=== PATIENT | female | born 1985 | race African-American/Black ===

== ENCOUNTER 2016-12-21 14:40 | Emergency (ER) | payer OTHER ==
[~2016-12-21] VITALS: Ht 157.5 cm; Wt 100.0 kg
[2016-12-21 15:32] VITALS: BP 141/81
== END 2016-12-21 15:43 | disposition home or self-care (01) | DRG 103 ==
LOC: ED 14:40
DX: R51 Headache (principal); F17.210 Nicotine dependence, cigarettes, uncomplicated; O99.332 Smoking (tobacco) complicating pregnancy, second trimester; Z3A.16 16 weeks gestation of pregnancy

== ENCOUNTER 2019-03-04 12:03 | Observation (INO) | payer SELFPAY ==
[~2019-03-04] VITALS: Ht 157.5 cm; Wt 100.0 kg
[2019-03-04 12:37] LABS: URINE BILIRUBIN - DIPSTICK NEGATIVE (NEGATIVE); URINE BLOOD DIPSTICK LARGE (NEGATIVE); URINE COLOR YELLOW; URINE GLUCOSE - DIPSTICK NEGATIVE (NEGATIVE); URINE KETONE NEGATIVE (NEGATIVE); URINE LEUK ESTERASE TRACE (NEGATIVE); URINE PROTEIN - DIPSTICK 100 mg/dL (NEG-TRACE); URINE SPECIFIC GRAVITY >=1.030; URINE UROBILINOGEN - DIPSTICK 0.2 E.U./dL (0.2)
[2019-03-04 12:49] LABS: URINE NITRITE - DIPSTICK POSITIVE (Negative)
[2019-03-04 12:50] LABS: URINE BACTERIA MANY hpf; URINE EPITHELIAL CELLS MANY EPI/hpf (0-FEW); URINE RBC 25-50 RBC/hpf (0-5)
[2019-03-04 13:19] LABS: HEMATOCRIT 39.7 % (37.0-47.0); HEMOGLOBIN 12.6 g/dl (12.0-16.0); IMMATURE GRANULOCYTES 0.2 % (0.0-5.0); MEAN CELL VOLUME 91.1 fL CALC (80.0-100.0); MEAN CORPUSCULAR HGB 28.9 pG CALC (26.0-32.0); MEAN CORPUSCULAR HGB CONC 31.7 g/L CALC (32.0-36.0); NEUT# 5.28 thou/uL (2.00-7.15); RED BLOOD COUNT 4.36 mill/uL (4.20-5.60); RED CELL DISTRI WIDTH 13.9 % (11.5-15.5)
[2019-03-04 13:39] LABS: ALBUMIN 4.3 g/dL (3.2-5.0); ALKALINE PHOSPHATASE 56 u/l (38-126); ANION GAP 10 (6-22 (CALC)); BILIRUBIN, TOTAL 0.5 mg/dL (0.0-1.4); BUN 9 mg/dL (7-17); BUN/CREATININE RATIO 13 (12-20 (CALC)); CARBON DIOXIDE 27 mmol/l (22-30); CHLORIDE 105 mmol/l (95-108); CREATININE 0.7 mg/dL (0.5-1.0); GFR > 60 ML/MIN (>=60 (CALC)); GFR FOR AFR.AMER. > 60 ML/MIN (>=60 (CALC)); LIPASE 88 u/l (23-300); POTASSIUM 3.9 mmol/l (3.5-5.1); SGOT/AST 25 u/l (14-36); SODIUM 139 mmol/l (137-146); TOTAL PROTEIN 7.3 g/dL (6.3-8.2)
[2019-03-04 16:40] VITALS: BP 95/64
[2019-03-04 20:08] VITALS: BP 95/56
[2019-03-05 04:06] VITALS: BP 95/56
[2019-03-05 05:19] LABS: HEMATOCRIT 36.3 % (37.0-47.0); HEMOGLOBIN 11.5 g/dl (12.0-16.0); IMMATURE GRANULOCYTES 0.2 % (0.0-5.0); MEAN CELL VOLUME 91.7 fL CALC (80.0-100.0); MEAN CORPUSCULAR HGB CONC 31.7 g/L CALC (32.0-36.0); NEUT# 2.2 thou/uL (2.00-7.15); RED BLOOD COUNT 3.96 mill/uL (4.20-5.60); RED CELL DISTRI WIDTH 13.9 % (11.5-15.5)
[2019-03-05 07:52] VITALS: BP 110/77
[2019-03-05] MEDS ORDERED: BACTRIM DS1 TAB PO (09:35)
== END 2019-03-05 13:15 | disposition home or self-care (01) | DRG 392 ==
LOC: ED 12:03 → ED-I 14:22 → ED 14:49 → MS2 14:50
PROVIDERS: Family Medicine; ADMIT Surgery; ATTEND Surgery
DX: R10.31 Right lower quadrant pain (principal); N39.0 Urinary tract infection, site not specified; B96.89 Other specified bacterial agents as the cause of diseases classified elsewhere; F17.210 Nicotine dependence, cigarettes, uncomplicated
CPT/HCPCS: G0378; Q9967

== ENCOUNTER 2020-03-29 15:40 | Emergency (ER) | payer SELFPAY ==
[~2020-03-29] VITALS: Ht 157.5 cm; Wt 100.0 kg
[~2020-03-29 15:40] MED LIST: BACTRIM DS1 TAB PO
[2020-03-29] MEDS ORDERED: CLINDAMYCIN300 M1 PO ×2 (15:55→16:09)
[2020-03-29 16:38] VITALS: BP 128/77
== END 2020-03-29 16:38 | disposition home or self-care (01) | DRG 159 ==
LOC: ED 15:40
DX: K03.81 Cracked tooth (principal); F17.200 Nicotine dependence, unspecified, uncomplicated

== ENCOUNTER 2020-07-22 | Emergency (ER) | payer SELFPAY ==
[~2020-07-22] MED LIST changes: +CLINDAMYCIN300 M1 PO
[2020-07-22 22:16] LABS: HEMATOCRIT 38.5 % (37.0-47.0); HEMOGLOBIN 12.3 g/dl (12.0-16.0); IMMATURE GRANULOCYTES 0.1 % (0.0-5.0); MEAN CELL VOLUME 87.9 fL CALC (80.0-100.0); MEAN CORPUSCULAR HGB 28.1 pG CALC (26.0-32.0); MEAN CORPUSCULAR HGB CONC 31.9 g/dL CAL (32.0-36.0); NEUT# 2.68 thou/uL (2.00-7.15); RED BLOOD COUNT 4.38 mill/uL (4.20-5.60); RED CELL DISTRI WIDTH 13.7 % (11.5-15.5)
[2020-07-22 22:17] LABS: URINE BILIRUBIN - DIPSTICK NEGATIVE (NEGATIVE); URINE BLOOD DIPSTICK NEGATIVE (NEGATIVE); URINE COLOR YELLOW; URINE GLUCOSE - DIPSTICK NEGATIVE (NEGATIVE); URINE KETONE NEGATIVE (NEGATIVE); URINE LEUK ESTERASE NEGATIVE (NEGATIVE); URINE PROTEIN - DIPSTICK NEGATIVE (NEG-TRACE); URINE SPECIFIC GRAVITY 1.025; URINE UROBILINOGEN - DIPSTICK 0.2 E.U./dL (0.2)
[2020-07-22 22:19] LABS: URINE NITRITE - DIPSTICK NEGATIVE (Negative)
[2020-07-22 22:39] LABS: ALBUMIN 4.2 g/dL (3.2-5.0); ALKALINE PHOSPHATASE 59 u/l (38-126); ANION GAP 13 (6-22 (CALC)); BILIRUBIN, TOTAL 0.5 mg/dL (0.0-1.4); BUN 6 mg/dL (7-17); BUN/CREATININE RATIO 8 (12-20 (CALC)); CARBON DIOXIDE 23 mmol/l (22-30); CHLORIDE 106 mmol/l (95-108); CREATININE 0.7 mg/dL (0.5-1.0); GFR > 60 ML/MIN (>=60 (CALC)); GFR FOR AFR.AMER. > 60 ML/MIN (>=60 (CALC)); SGOT/AST 26 u/l (14-36); SODIUM 138 mmol/l (137-146); TOTAL PROTEIN 7.2 g/dL (6.3-8.2)
== END 2020-07-22 22:50 | disposition home or self-care (01) | DRG 761 ==
PROVIDERS: Family Medicine
DX: N92.6 Irregular menstruation, unspecified (principal); F17.210 Nicotine dependence, cigarettes, uncomplicated

== ENCOUNTER 2021-07-06 10:03 | Emergency (ER) | payer SELFPAY ==
[~2021-07-06] VITALS: Ht 157.5 cm; Wt 97.0 kg
[2021-07-06] MEDS ORDERED: FLOXIN OTIC0.3 % AS (10:38)
[2021-07-06 10:53] VITALS: BP 107/69
== END 2021-07-06 10:53 | disposition home or self-care (01) | DRG 605 ==
LOC: ED 10:03
DX: S00.412A Abrasion of left ear, initial encounter (principal); F17.200 Nicotine dependence, unspecified, uncomplicated; X58.XXXA Exposure to other specified factors, initial encounter